=== PATIENT | female | born 1955 | race Caucasian/White ===

== ENCOUNTER 2016-12-12 23:47 | Emergency (ER) | payer OTHER | END 2016-12-13 01:50 | disposition home or self-care (01) | LOC: ER1 23:47 | DX: G25.81 Restless legs syndrome (principal); Z88.0 Allergy status to penicillin; Z88.6 Allergy status to analgesic agent; Z79.891 Long term (current) use of opiate analgesic; Z79.899 Other long term (current) drug therapy | CPT/HCPCS: 93005; 99283 ==

== ENCOUNTER 2016-12-14 19:05 | Emergency (ER) | payer OTHER ==
[2016-12-14 20:37] LABS: HEMOGLOBIN 12.3 gm/dl (12.3-15.3); RED BLOOD COUNT 3.89 M/UL (4.00-5.10)
[2016-12-14 20:48] LABS: BUN/CREATININE RATIO 14 (0-10)
[2016-12-16 14:14] LABS: WHITE BLOOD COUNT 12.9 K/UL (4.5-11.0)
== END 2016-12-14 21:30 | disposition left against medical advice (07) ==
LOC: ER1 19:05
PROVIDERS: Emergency Medicine
DX: R22.43 Localized swelling, mass and lump, lower limb, bilateral (principal); M79.605 Pain in left leg; M79.604 Pain in right leg; Z53.21 Procedure and treatment not carried out due to patient leaving prior to being seen by health care provider
CPT/HCPCS: 71020; 80053; 83880; 84484; 85025

== ENCOUNTER 2016-12-15 03:00 | Emergency (ER) | payer OTHER ==
[2016-12-15 08:05] LABS: HEMOGLOBIN 12.6 gm/dl (12.3-15.3); RED BLOOD COUNT 4.01 M/UL (4.00-5.10); WHITE BLOOD COUNT 11.5 K/UL (4.5-11.0)
[2016-12-15 08:12] LABS: BUN/CREATININE RATIO 16 (0-10)
== END 2016-12-15 07:47 | disposition left against medical advice (07) ==
LOC: ER1 03:00
PROVIDERS: Physician Assistant
DX: G25.81 Restless legs syndrome (principal); E11.9 Type 2 diabetes mellitus without complications; I10 Essential (primary) hypertension; E03.9 Hypothyroidism, unspecified; E78.5 Hyperlipidemia, unspecified; Z88.0 Allergy status to penicillin; Z88.6 Allergy status to analgesic agent
CPT/HCPCS: 36415; 80053; 85025; 99283

== ENCOUNTER 2020-09-24 12:11 | Emergency (ER) | payer OTHER ==
[~2020-09-24 12:11] MED LIST: ASPIR 8181 MG PO; ASPIRIN EC81 MG PO; AUTOJECT 21 EACH SQ; CLOPIDOGREL75 MG PO; COMBIVENT RESPIM4 GM INH; FUROSEMIDE80 MG PO; GABAPENTIN100 MG PO; INVANZ 1 GM VIAL1 GM IV; JARDIANCE10 MG PO; K-DUR TAB 20 M20 MEQ PO; KEFLEX CAP 500500 MG PO; LAMISIL AT 15 G15 GM TOP; LANTUS INS100 UTS/M2 SQ; LASIX40 MG PO; LEVEMIR100 UNIT/1 SQ; LEVOTHYROXINE200 MC1 PO; LIPITOR TAB 2020 MG PO; LIPITOR40 MG PO; LISINOPRIL20 MG PO; LOPRESSOR 25 MG25 MG PO; MAG-OX 400 TAB400 MG PO; METFORMIN HCL1000 MG PO; METFORMIN HCL500 MG PO; METOPROLOL TART25 MG PO; NITROGLYCERIN0.4 MG SL; OMEPRAZOLE40 MG PO; PLAVIX 75 MG TA75 MG PO; POTASSIUM CHLO20 ME1 PO; REQUIP3 MG PO; ROPINIROLE HCL3 MG PO; SPIRIVA HANDIH18 MCG INH; SYMBICORT 80-10.2 GM INH; SYNTHROID200 MCG PO; TOPROL XL25 MG PO
[2020-09-24] MEDS ORDERED: GYNE-LOTRIMIN 145 GM VG (14:20)
[2020-09-24] MEDS ORDERED: DIFLUCAN150 MG PO (14:20)
[2020-09-24] MEDS ORDERED: PYRIDIUM200 MG PO (14:20)
== END 2020-09-24 15:11 | disposition home or self-care (01) ==
LOC: ER1 12:11
DX: N39.0 Urinary tract infection, site not specified (principal); B96.20 Unspecified Escherichia coli [E. coli] as the cause of diseases classified elsewhere; B37.3 Candidiasis of vulva and vagina; R94.6 Abnormal results of thyroid function studies; I11.0 Hypertensive heart disease with heart failure; I50.9 Heart failure, unspecified; E11.9 Type 2 diabetes mellitus without complications; J44.9 Chronic obstructive pulmonary disease, unspecified; Z90.49 Acquired absence of other specified parts of digestive tract; Z79.899 Other long term (current) drug therapy; Z79.84 Long term (current) use of oral hypoglycemic drugs; Z88.6 Allergy status to analgesic agent; Z88.7 Allergy status to serum and vaccine; Z16.12 Extended spectrum beta lactamase (ESBL) resistance
CPT/HCPCS: 81001; 87077; 87086; 87186; 99283

== ENCOUNTER 2021-02-26 20:17 | Emergency (ER) | payer OTHER ==
[~2021-02-26 20:17] MED LIST changes: +DIFLUCAN150 MG PO; +GYNE-LOTRIMIN 145 GM VG; +PYRIDIUM200 MG PO
== END 2021-02-26 23:31 | disposition home or self-care (01) ==
LOC: ER1 20:17
DX: S70.02XA Contusion of left hip, initial encounter (principal); S40.012A Contusion of left shoulder, initial encounter; M86.9 Osteomyelitis, unspecified; E11.9 Type 2 diabetes mellitus without complications; Z88.0 Allergy status to penicillin; W19.XXXA Unspecified fall, initial encounter; Y92.009 Unspecified place in unspecified non-institutional (private) residence as the place of occurrence of the external cause
CPT/HCPCS: 71045; 73030; 73502; 99283

== ENCOUNTER 2021-03-21 21:36 | Inpatient (IN) | payer OTHER ==
[~2021-03-21] VITALS: Ht 162.6 cm; Wt 100.2 kg
[2021-03-21 21:57] LABS: HEMOGLOBIN 13.5 gm/dl (12.3-15.3); RED BLOOD COUNT 4.4 M/UL (4.00-5.10)
[2021-03-21 22:20] LABS: BUN/CREATININE RATIO 12 (0-10)
[2021-03-22 03:02] LABS: HEMOGLOBIN 11.8 gm/dl (12.3-15.3); WHITE BLOOD COUNT 10.4 K/UL (4.5-11.0)
[2021-03-22 03:09] LABS: RED BLOOD COUNT 3.92 M/UL (4.00-5.10)
[2021-03-22 03:27] LABS: BUN/CREATININE RATIO 14 (0-10)
[2021-03-22] MEDS ORDERED: LIPITOR40 MG PO (11:26)
[2021-03-22] MEDS ORDERED: SYNTHROID175 MCG PO (11:27)
[2021-03-22] MEDS ORDERED: ELAVIL 50 MG TA50 MG PO (11:28)
[2021-03-22] MEDS ORDERED: LASIX20 MG PO (11:29)
[2021-03-22] MEDS ORDERED: FARXIGA10 MG PO (11:29)
[2021-03-22] MEDS ORDERED: REQUIP3 MG PO (11:30)
[2021-03-22] MEDS ORDERED: JARDIANCE10 MG PO (11:30)
[2021-03-22] MEDS ORDERED: K-DUR TAB 10 M10 MEQ PO (11:32)
[2021-03-23 18:41] LABS: HEMOGLOBIN 12.6 gm/dl (12.3-15.3); RED BLOOD COUNT 4.1 M/UL (4.00-5.10); WHITE BLOOD COUNT 11.2 K/UL (4.5-11.0)
[2021-03-24 02:47] LABS: HEMOGLOBIN 11.2 gm/dl (12.3-15.3); RED BLOOD COUNT 3.86 M/UL (4.00-5.10); WHITE BLOOD COUNT 9.1 K/UL (4.5-11.0)
[2021-03-24 03:06] LABS: BUN/CREATININE RATIO 26 (0-10)
[2021-03-24 14:43] LABS: WHITE BLOOD COUNT 12.6 K/UL (4.5-11.0)
[2021-03-24] MEDS ORDERED: INVANZ 1 GM VIAL1 GM IM (15:01)
== END 2021-03-24 17:30 | disposition home health service (06) | DRG 689 ==
LOC: ER1 21:36 → CDU 23:24 → PROG CARE 23:24
PROVIDERS: Emergency Medicine; Internal Medicine; ADMIT Internal Medicine
DX: N30.00 Acute cystitis without hematuria (principal); G93.41 Metabolic encephalopathy; Z16.12 Extended spectrum beta lactamase (ESBL) resistance; I50.32 Chronic diastolic (congestive) heart failure; R55 Syncope and collapse; E86.0 Dehydration; I25.10 Atherosclerotic heart disease of native coronary artery without angina pectoris; E78.5 Hyperlipidemia, unspecified; E66.01 Morbid (severe) obesity due to excess calories; D64.9 Anemia, unspecified; J44.9 Chronic obstructive pulmonary disease, unspecified; E03.9 Hypothyroidism, unspecified; B96.20 Unspecified Escherichia coli [E. coli] as the cause of diseases classified elsewhere; R53.1 Weakness; I11.0 Hypertensive heart disease with heart failure; Z88.0 Allergy status to penicillin; Z90.49 Acquired absence of other specified parts of digestive tract; Z82.49 Family history of ischemic heart disease and other diseases of the circulatory system; Z88.8 Allergy status to other drugs, medicaments and biological substances; Z68.38 Body mass index [BMI] 38.0-38.9, adult
CPT/HCPCS: 36415; 70450; 70551; 71045; 73502; 80048; 80053; 80307; 81001; 82140; 82550; 82553; 82607; 82746; 82962; 83036; 83605; 83690; 83735; 83874; 83880; 84100; 84439; 84443; 84484; 85025; 85027; 85610; 85730; 87077; 87086; 87186; 93005; 95816; 96374; 97116-GP-CQ; 97161; 97166; 97530-GP-CQ; 97535; 99285; G0480; J1335; J1650; J2185; J2405; J7030; U0002

== ENCOUNTER 2021-07-29 20:48 | Emergency (ER) | payer OTHER ==
[~2021-07-29 20:48] MED LIST changes: +ELAVIL 50 MG TA50 MG PO; +FARXIGA10 MG PO; +INVANZ 1 GM VIAL1 GM IM; +K-DUR TAB 10 M10 MEQ PO; +LASIX20 MG PO; +SYNTHROID175 MCG PO
[2021-07-29 21:25] LABS: HEMOGLOBIN 12.2 gm/dl (12.3-15.3); RED BLOOD COUNT 3.8 M/UL (4.00-5.10); WHITE BLOOD COUNT 8.9 K/UL (4.5-11.0)
[2021-07-29 21:49] LABS: BUN/CREATININE RATIO 8 (0-10)
[2021-07-29] MEDS ORDERED: FARXIGA10 MG PO (23:35)
[2021-07-30] MEDS ORDERED: BACTRIM DS TAB1 EACH PO (01:45)
== END 2021-07-30 02:47 | disposition home or self-care (01) ==
LOC: ER1 20:48
PROVIDERS: Student in an Organized Health Care Education/Training Program
DX: N39.0 Urinary tract infection, site not specified (principal); I11.0 Hypertensive heart disease with heart failure; I50.9 Heart failure, unspecified; J44.9 Chronic obstructive pulmonary disease, unspecified; E11.9 Type 2 diabetes mellitus without complications; Z95.5 Presence of coronary angioplasty implant and graft; Z88.0 Allergy status to penicillin; Z88.6 Allergy status to analgesic agent
CPT/HCPCS: 70450; 71045; 80053; 81001; 82550; 82553; 83874; 84484; 85025; 87086; 96374; 99284; J0696

== ENCOUNTER 2021-08-27 16:21 | Observation (INO) | payer OTHER ==
[~2021-08-27] VITALS: Ht 162.6 cm; Wt 118.4 kg
[~2021-08-27 16:21] MED LIST changes: +BACTRIM DS TAB1 EACH PO
[2021-08-27 17:59] LABS: HEMOGLOBIN 12.5 gm/dl (12.3-15.3); RED BLOOD COUNT 3.84 M/UL (4.00-5.10); WHITE BLOOD COUNT 9.4 K/UL (4.5-11.0)
[2021-08-27 18:39] LABS: BUN/CREATININE RATIO 13 (0-10)
[2021-08-28 02:50] LABS: HEMOGLOBIN 12.1 gm/dl (12.3-15.3); RED BLOOD COUNT 3.72 M/UL (4.00-5.10); WHITE BLOOD COUNT 10.5 K/UL (4.5-11.0)
[2021-08-28 03:47] LABS: BUN/CREATININE RATIO 15 (0-10)
[2021-08-28] MEDS ORDERED: JARDIANCE10 MG PO (10:34)
[2021-08-28] MEDS ORDERED: OMEPRAZOLE40 MG PO (10:35)
[2021-08-28] MEDS ORDERED: LEVOTHYROXINE175 MCG PO ×2 (10:35→12:46)
[2021-08-29 05:13] LABS: HEMOGLOBIN 11.4 gm/dl (12.3-15.3); RED BLOOD COUNT 3.54 M/UL (4.00-5.10); WHITE BLOOD COUNT 7.9 K/UL (4.5-11.0)
== END 2021-08-29 10:32 | disposition home or self-care (01) ==
LOC: ER1 16:21 → CDU 20:11 → M/S 08-28 13:35
PROVIDERS: Internal Medicine; Nurse Practitioner; ADMIT Internal Medicine
DX: I21.4 Non-ST elevation (NSTEMI) myocardial infarction (principal); M62.82 Rhabdomyolysis; R07.89 Other chest pain; I25.10 Atherosclerotic heart disease of native coronary artery without angina pectoris; E11.9 Type 2 diabetes mellitus without complications; I11.0 Hypertensive heart disease with heart failure; I50.32 Chronic diastolic (congestive) heart failure; G25.81 Restless legs syndrome; N17.9 Acute kidney failure, unspecified; J44.9 Chronic obstructive pulmonary disease, unspecified; E03.9 Hypothyroidism, unspecified; E78.5 Hyperlipidemia, unspecified; E66.01 Morbid (severe) obesity due to excess calories; Z95.5 Presence of coronary angioplasty implant and graft; Z88.0 Allergy status to penicillin; Z88.8 Allergy status to other drugs, medicaments and biological substances; Z79.82 Long term (current) use of aspirin; Z79.02 Long term (current) use of antithrombotics/antiplatelets; Z79.84 Long term (current) use of oral hypoglycemic drugs; Z79.899 Other long term (current) drug therapy; Z20.822 Contact with and (suspected) exposure to COVID-19
CPT/HCPCS: 36415; 36600; 71045; 73030; 80048; 80053; 82550; 82553; 82803; 82962; 83036; 83735; 83874; 83880; 84439; 84443; 84484; 85025; 85027; 85610; 85730; 93005; 94760; G0378; J1644; J1650; J2270; U0002

== ENCOUNTER 2021-10-26 16:14 | Emergency (ER) | payer OTHER ==
[~2021-10-26 16:14] MED LIST changes: +LEVOTHYROXINE175 MCG PO
[2021-10-26 16:57] LABS: HEMOGLOBIN 12.6 gm/dl (12.3-15.3); RED BLOOD COUNT 4.14 M/UL (4.00-5.10); WHITE BLOOD COUNT 9.6 K/UL (4.5-11.0)
== END 2021-10-26 20:33 | disposition home or self-care (01) ==
LOC: ER1 16:14
PROVIDERS: Physician Assistant
DX: U07.1 COVID-19 (principal); J44.9 Chronic obstructive pulmonary disease, unspecified; E11.9 Type 2 diabetes mellitus without complications; I10 Essential (primary) hypertension; Z88.0 Allergy status to penicillin; Z88.5 Allergy status to narcotic agent
CPT/HCPCS: 71045; 80053; 85025; 99283

== ENCOUNTER 2021-11-08 00:27 | Emergency (ER) | payer OTHER ==
[2021-11-08 01:15] LABS: HEMOGLOBIN 13.5 gm/dl (12.3-15.3); RED BLOOD COUNT 4.38 M/UL (4.00-5.10); WHITE BLOOD COUNT 10.4 K/UL (4.5-11.0)
[2021-11-08 01:50] LABS: BUN/CREATININE RATIO 12 (0-10)
== END 2021-11-08 04:45 | disposition home or self-care (01) ==
LOC: ER1 00:27
PROVIDERS: Physician Assistant
DX: U07.1 COVID-19 (principal); E11.9 Type 2 diabetes mellitus without complications; Z79.84 Long term (current) use of oral hypoglycemic drugs; J44.9 Chronic obstructive pulmonary disease, unspecified; Z88.0 Allergy status to penicillin; Z88.6 Allergy status to analgesic agent
CPT/HCPCS: 71045; 80053; 82550; 82553; 83605; 83690; 83735; 83880; 84484; 85025; 86140; 99285

== ENCOUNTER 2021-12-17 20:51 | Emergency (ER) | payer MEDICARE, OTHER ==
[~2021-12-17 20:51] MED LIST changes: +AEROCHAMBER1 EA XX; +OMNICEF 300 MG300 MG PO; +PROVENTIL HFA6.7 GM INH
[2021-12-17 23:07] LABS: HEMOGLOBIN 13.7 gm/dl (12.3-15.3); RED BLOOD COUNT 4.59 M/UL (4.00-5.10); WHITE BLOOD COUNT 11.8 K/UL (4.5-11.0)
[2021-12-18] MEDS ORDERED: ZOFRAN 4 MG TAB4 MG PO (01:30)
[2021-12-18] MEDS ORDERED: TAMIFLU75 MG PO (01:30)
[2021-12-18] MEDS ORDERED: BENZONATATE200 MG PO (01:30)
== END 2021-12-18 01:45 | disposition home or self-care (01) ==
LOC: ER1 20:51
PROVIDERS: Physician Assistant Medical
DX: J10.1 Influenza due to other identified influenza virus with other respiratory manifestations (principal); Z20.822 Contact with and (suspected) exposure to COVID-19; I11.0 Hypertensive heart disease with heart failure; I50.9 Heart failure, unspecified; J44.9 Chronic obstructive pulmonary disease, unspecified; E11.9 Type 2 diabetes mellitus without complications; Z88.6 Allergy status to analgesic agent; Z88.0 Allergy status to penicillin
CPT/HCPCS: 0240U; 71045; 80053; 85025; 99284

== ENCOUNTER 2022-01-23 21:42 | Emergency (ER) | payer MEDICARE, OTHER ==
[~2022-01-23 21:42] MED LIST changes: +BENZONATATE200 MG PO; +TAMIFLU75 MG PO; +ZOFRAN 4 MG TAB4 MG PO
[2022-01-23 22:39] LABS: HEMOGLOBIN 12.8 gm/dl (12.3-15.3); RED BLOOD COUNT 4.35 M/UL (4.00-5.10); WHITE BLOOD COUNT 10.5 K/UL (4.5-11.0)
[2022-01-24 00:08] LABS: BUN/CREATININE RATIO 18 (0-10)
== END 2022-01-24 01:31 | disposition home or self-care (01) ==
LOC: ER1 21:42
PROVIDERS: Student in an Organized Health Care Education/Training Program
DX: R07.9 Chest pain, unspecified (principal); I11.9 Hypertensive heart disease without heart failure; E11.9 Type 2 diabetes mellitus without complications; Z95.5 Presence of coronary angioplasty implant and graft; Z88.6 Allergy status to analgesic agent; Z88.0 Allergy status to penicillin
CPT/HCPCS: 36415; 71045; 80053; 82550; 82553; 84484; 85025; 93005; 99285

== ENCOUNTER 2022-03-25 19:43 | Inpatient (IN) | payer MEDICARE, OTHER ==
[~2022-03-25] VITALS: Ht 162.6 cm; Wt 132.5 kg
[2022-03-25 20:51] LABS: HEMOGLOBIN 12.4 gm/dl (12.3-15.3); RED BLOOD COUNT 4.2 M/UL (4.00-5.10); WHITE BLOOD COUNT 10.9 K/UL (4.5-11.0)
[2022-03-25 21:03] LABS: BUN/CREATININE RATIO 18 (0-10)
[2022-03-26 05:16] LABS: HEMOGLOBIN 11.8 gm/dl (12.3-15.3); RED BLOOD COUNT 3.87 M/UL (4.00-5.10)
[2022-03-26 05:39] LABS: BUN/CREATININE RATIO 17 (0-10)
[2022-03-26] MEDS ORDERED: LEVOTHYROXINE200 MC1 PO (08:57)
[2022-03-26] MEDS ORDERED: PROAIR HFA8.5 GM INH (08:58)
[2022-03-26] MEDS ORDERED: AMITRIPTYLINE H50 MG PO (10:57)
[2022-03-27 02:25] LABS: HEMOGLOBIN 10.9 gm/dl (12.3-15.3); RED BLOOD COUNT 3.61 M/UL (4.00-5.10); WHITE BLOOD COUNT 8.2 K/UL (4.5-11.0)
[2022-03-27 02:51] LABS: BUN/CREATININE RATIO 21 (0-10)
[2022-03-28 02:23] LABS: RED BLOOD COUNT 3.65 M/UL (4.00-5.10); WHITE BLOOD COUNT 8.5 K/UL (4.5-11.0)
[2022-03-28 03:01] LABS: BUN/CREATININE RATIO 17 (0-10)
[2022-03-28] MEDS ORDERED: OMNICEF 300 MG300 MG PO (08:51)
== END 2022-03-28 11:43 | disposition home or self-care (01) | DRG 313 ==
LOC: ER1 19:43 → CDU 22:03 → M/S 22:03 → CDU 22:03 → M/S 03-26 09:11
PROVIDERS: Emergency Medicine; Internal Medicine; Physician Assistant Medical; ADMIT Internal Medicine
PROC: B24BZZZ Ultrasonography of Heart with Aorta (ICD-10-PCS; principal; 2022-03-26)
DX: R07.89 Other chest pain (principal); N30.00 Acute cystitis without hematuria; I50.32 Chronic diastolic (congestive) heart failure; Z20.822 Contact with and (suspected) exposure to COVID-19; B96.20 Unspecified Escherichia coli [E. coli] as the cause of diseases classified elsewhere; B96.1 Klebsiella pneumoniae [K. pneumoniae] as the cause of diseases classified elsewhere; J44.9 Chronic obstructive pulmonary disease, unspecified; E78.5 Hyperlipidemia, unspecified; A08.4 Viral intestinal infection, unspecified; I11.0 Hypertensive heart disease with heart failure; E03.9 Hypothyroidism, unspecified; E66.9 Obesity, unspecified; I25.10 Atherosclerotic heart disease of native coronary artery without angina pectoris; Z95.5 Presence of coronary angioplasty implant and graft; Z87.440 Personal history of urinary (tract) infections; Z90.49 Acquired absence of other specified parts of digestive tract; Z83.3 Family history of diabetes mellitus; Z88.6 Allergy status to analgesic agent; Z79.01 Long term (current) use of anticoagulants; Z79.82 Long term (current) use of aspirin; Z98.891 History of uterine scar from previous surgery
CPT/HCPCS: ECHO; 0240U; 36415; 71045; 80048; 80053; 81001; 82550; 82553; 82962; 83605; 83735; 83880; 84484; 85025; 85027; 87040; 87077; 87086; 87186; 93005; 93306; 94640; 94760; 96375; 96376; 97116-GP-CQ; 97161; 97166; 97535; G0378; J0696; J1335; J1956; J2270

== ENCOUNTER 2022-04-25 21:18 | Emergency (ER) | payer MEDICARE, OTHER ==
[~2022-04-25 21:18] MED LIST changes: +AMITRIPTYLINE H50 MG PO; +PROAIR HFA8.5 GM INH
[2022-04-25 22:02] LABS: HEMOGLOBIN 12.6 gm/dl (12.3-15.3); RED BLOOD COUNT 4.13 M/UL (4.00-5.10); WHITE BLOOD COUNT 9.8 K/UL (4.5-11.0)
[2022-04-25 22:24] LABS: BUN/CREATININE RATIO 15 (0-10)
[2022-04-26] MEDS ORDERED: BENZONATATE200 MG PO (02:04)
== END 2022-04-26 02:40 | disposition home or self-care (01) ==
LOC: ER1 21:18
PROVIDERS: Physician Assistant
DX: J06.9 Acute upper respiratory infection, unspecified (principal); I50.9 Heart failure, unspecified; E11.9 Type 2 diabetes mellitus without complications; J44.9 Chronic obstructive pulmonary disease, unspecified; Z20.822 Contact with and (suspected) exposure to COVID-19
CPT/HCPCS: 0240U; 71045; 80053; 82550; 82553; 84484; 85025; 93005; 94664; 99284

== ENCOUNTER 2022-05-28 22:49 | Observation (INO) | payer MEDICARE, OTHER ==
[~2022-05-28] VITALS: Ht 162.6 cm; Wt 113.9 kg
[2022-05-28 23:29] LABS: HEMOGLOBIN 13.3 gm/dl (12.3-15.3); RED BLOOD COUNT 4.25 M/UL (4.00-5.10); WHITE BLOOD COUNT 15.2 K/UL (4.5-11.0)
[2022-05-28 23:47] LABS: BUN/CREATININE RATIO 11 (0-10)
[2022-05-29 06:22] LABS: HEMOGLOBIN 11.5 gm/dl (12.3-15.3)
[2022-05-29 06:59] LABS: RED BLOOD COUNT 3.8 M/UL (4.00-5.10); WHITE BLOOD COUNT 10.6 K/UL (4.5-11.0)
[2022-05-29] MEDS ORDERED: JARDIANCE10 MG PO (11:30)
--- NOTE | 2022-05-30 12:29 | NUR ---
Patient being transferred to PCU room 1607 from [facility] per Telet[employer]acking, no report recieved from [facility] at this time
[2022-05-31 08:13] LABS: CREATININE, URINE 133.2 mg/dL (Not Estab.)
[2022-05-31] MEDS ORDERED: LOPRESSOR 25 MG25 MG PO (15:19)
[2022-05-31] MEDS ORDERED: AMLODIPINE BESYL5 MG PO (15:19)
[2022-05-31] MEDS ORDERED: LISINOPRIL10 MG PO (15:19)
[2022-05-31] MEDS ORDERED: NITROGLYCERIN0.4 MG SL (15:19)
[2022-05-31] MEDS ORDERED: ASPIRIN EC81 MG PO (15:19)
[2022-05-31] MEDS ORDERED: BRILINTA 90 MG90 MG PO (15:19)
[2022-05-31] MEDS ORDERED: ATORVASTATIN CA80 MG PO (15:19)
[2022-05-31] MEDS ORDERED: ISOSORBIDE MONO30 MG PO (15:19)
== END 2022-05-31 15:45 | disposition home or self-care (01) ==
LOC: ER1 22:49 → MED SURG 4 05-29 00:45 → PROG CARE 05-29 00:45 → CDU 05-29 00:45 → MED SURG 4 05-29 02:48 → PROG CARE 05-30 13:23
PROVIDERS: Family Medicine; ADMIT Internal Medicine
PROC: 4A023N8 Measurement of Cardiac Sampling and Pressure, Bilateral, Percutaneous Approach (ICD-10-PCS; principal; 2022-05-30)
PROC: B2161ZZ Fluoroscopy of Right and Left Heart using Low Osmolar Contrast (ICD-10-PCS; 2022-05-30)
PROC: B2111ZZ Fluoroscopy of Multiple Coronary Arteries using Low Osmolar Contrast (ICD-10-PCS; 2022-05-30)
PROC: 027034Z Dilation of Coronary Artery, One Artery with Drug-eluting Intraluminal Device, Percutaneous Approach (ICD-10-PCS; 2022-05-30)
DX: T82.855A Stenosis of coronary artery stent, initial encounter (principal); Z20.822 Contact with and (suspected) exposure to COVID-19; E11.9 Type 2 diabetes mellitus without complications; I16.0 Hypertensive urgency; R19.7 Diarrhea, unspecified; D72.829 Elevated white blood cell count, unspecified; I25.10 Atherosclerotic heart disease of native coronary artery without angina pectoris; I10 Essential (primary) hypertension; E78.5 Hyperlipidemia, unspecified; M10.9 Gout, unspecified; E03.9 Hypothyroidism, unspecified; I25.2 Old myocardial infarction; J44.9 Chronic obstructive pulmonary disease, unspecified; G47.33 Obstructive sleep apnea (adult) (pediatric); Z79.82 Long term (current) use of aspirin; Z79.84 Long term (current) use of oral hypoglycemic drugs; Z79.890 Hormone replacement therapy; Z79.899 Other long term (current) drug therapy; Z88.0 Allergy status to penicillin; Z88.6 Allergy status to analgesic agent; Z95.5 Presence of coronary angioplasty implant and graft; Y83.2 Surgical operation with anastomosis, bypass or graft as the cause of abnormal reaction of the patient, or of later complication, without mention of misadventure at the time of the procedure
CPT/HCPCS: 36415; 71045; 78452; 80053; 82043; 82550; 82553; 82570; 82962; 83690; 83880; 84484; 85025; 85347; 85610; 93005; 93017; 96372; 96374; 96375; 96376; 99152; 99153; 99285; A9502; C1725; C1769; C1874; C1887; C1894; C9600; G0378; J1170; J1265; J1644; J1650; J2250; J2270; J2370; J2405; J2550; J2785; J3010; J3246; J7040; Q9967; U0002